=== PATIENT | male | born 1955 | race Caucasian/White ===

== ENCOUNTER 2017-02-23 15:56 | Emergency (ER) | payer OTHER ==
--- NOTE | 2017-02-23 17:16 | DIAGNOSTIC IMAGING REPORT ---
PROCEDURE: CT ABD/PELVIS WITH CONTRAST INDICATION: Nausea, vomiting. Diarrhea. Elevated white blood count (19,500). History of inguinal hernia repairs and back surgeries TECHNIQUE: 125 ml of Isovue 300 were injected intravenously and axial images were obtained of the entire abdomen and pelvis with sagittal and coronal reformations. COMPARISON: None. FINDINGS: ABDOMEN: Gallbladder, liver, spleen, pancreas, kidneys, are normal. Moderate calcified atheromatous changes aorta and iliac vessels, but no evidence of aneurysm There is mild mucosal thickening of the duodenum and proximal jejunum. Bowel pattern is otherwise normal, including appendix. Mild degenerative changes of the lumbar spine. Mild parenchymal scarring at the lung bases. PELVIS: There is marked enlargement prostate (8.2 x 6.8 x 6.6 cm) with central dystrophic calcifications. Pelvic structures are otherwise normal. No evidence of free fluid. IMPRESSION: 1. Mild mucosal thickening of the duodenum and proximal jejunum may be a reflection of gastroenteritis. 2. Moderate calcified atheromatous changes of the abdominal aorta. 3. Otherwise negative CT abdomen. 4. Marked enlargement prostate (8.2 x 6.8 x 6.6 cm). 5. Otherwise negative CT pelvis. 6. Findings discussed with Dr. Corrina Reyes. All CT scans at this facility use dose modulation, iterative reconstruction, and/or weight-based dosing when appropriate to reduce radiation dose to as low as reasonably achievable.
--- NOTE | 2017-02-23 18:14 | ED NURSING NOTES ---
Clinical Report - Nurses [facility] [place] [address] 02/23/2017 15:56 Patient: KATIE YEE TRIAGE Triage time 16:01. Acuity: LEVEL 3. Chief Complaint: NAUSEA and VOMITING. Alert. No acute distress. LAUREI COMA SCORE: Laurie Coma Scale: 15- eyes open spontaneously (4); best verbal response- oriented x 4 (5); best motor response- obeys commands (6). --16:09 Sheriff Vera R.N. 16:01 02/23/17. BP: 132/105. HR: 115. RR: 20. O2 saturation: 100%. --16:09 Sheriff Vera R.N. 16:12 02/23/17. Temp: 97.7 F (oral). Pain level now: 10/10. --16:13 Gracie Read R.N. Weight: 74.8 kg stated. Height/Length: 72 inches Per Patient. BMI: 22.4. --16:03 Sheriff Vera R.N. Medications Vitamins/Minerals Oral. --16:02 Sheriff Vera R.N. Medication/allergy information source: the patient. --16:09 Sheriff Vera R.N. Allergies No Known Drug Allergy. --16:02 Sheriff Vera R.N. History Arrived by private vehicle. Historian: patient. Accompanied by family. Primary physician (none). Onset. (Thursday). SOCIAL HX: Heavy tobacco smoker- less than 1 pack per day. Occasional alcohol use. History of drug use: marijuana. FALL RISK ASSESSMENT: Fall risk assessment completed. No fall risk identified. FUNCTIONAL ASSESSMENT: Functional assessment: no impairments noted. LEARNING NEEDS ASSESSMENT: The learning needs assessment revealed no barriers. --16:09 Sheriff Vera R.N. PROBLEMS: no known problems. ADDITIONAL SURGERIES: Back Surgery. Hernia Repair. --16:03 Sheriff Vera R.N. Assessment GENERAL / NEURO / PSYCH: The patient is awake and alert, appears uncomfortable, is oriented and appears uncomfortable. He has good eye contact. RESPIRATORY: Respirations not labored. CVS: Cardiac rhythm: sinus tachycardia. SKIN: Skin is warm and dry. --16:09 Sheriff Vera R.N. Interventions ID band on patient. To treatment room. --16:09 Sheriff Vera R.N. PHYSICAL ASSESSMENT 16:02/23/17. To room via wheelchair. Patient gowned. GENERAL / NEURO / PSYCH: The patient is awake and alert, appears uncomfortable and is oriented and cooperative. He appears uncomfortable and has good eye contact. RESPIRATORY: Respirations not labored. CVS: Cardiac rhythm: sinus tachycardia. GI / : The patient has had nausea. SKIN: Skin is warm and dry. --16:07 Sheriff Vera R.N. NURSING PROGRESS NOTES 16:03 02/23/2017 Site #1 started via IV in the left forearm with an 18g angiocath, with aseptic technique and good blood return. Blood drawn: rainbow set. Labeled in the presence of the patient and sent to the lab. Saline lock flushed with 10 mL saline. --16:08 Sheriff Vera R.N. 16:02/23/2017 Site #2 started via IV in the left antecubital space with an 18g angiocath, with aseptic technique and good blood return; one attempt. Saline lock flushed with 10 mL saline (by Silas GARCIA). --16:10 Gracie Read R.N. 16:10 02/23/17. fruit picker machine operator, pulse oximeter and NIBP monitor placed on patient. Patient gowned. Head of bed elevated. Reassurance given. Call light placed in reach. Side rails up x 2. Bed placed in lowest position. Brakes of bed on. --16:10 Gracie Read R.N. EKG time: (1615). EKG was performed by a tech and shown to the ED physician. --16:15 Gracie Read R.N. 16:19 02/23/17. Blood samples drawn by nurse. (pulled from [facility] handed to Manager Of Exhibitions And Collections). --16:19 Gracie Read R.N. 16:19 02/23/17. BP: 119/79. HR: 90. RR: 30. O2 saturation: 100%. --16:20 Gracie Read R.N. 16:20 02/23/17. Reassessment after fluids administered. He is calm and resting quietly. Overall patient status is the same- he states feels the same. SKIN: Skin is warm and dry. --16:20 Gracie Read R.N. EKG time: (1615). EKG was ordered, performed by a tech and shown to the ED physician. --16:31 Guillermo Pearce, ADRIANNE Tech1 <<STRICKEN ENTRY-- 16:45 02/23/2017 Started bag #1 1000 mL IV Fluids IV NS (Saline); at 1000 mL/hr over 1 hour(s) via site #1 --16:59 Gracie Read R.N. --END STRIKE>> Change to Details. --17:05 Gracie Read R.N. 16:45 02/23/2017 Started bag #2 1000 IV Fluids IV NS (Saline); at 1000 mL/hr over 1 hour(s) via site #1 --17:05 Gracie Read R.N. 16:45 02/23/2017 IV Saline Lock Drip IV Discontinued: bag #1 infused. Total amount infused: 1000 mL. --16:58 Gracie Read R.N. 16:54 02/23/17. Patient transported to CT by stretcher. --16:54 Gracie Read R.N. 17:17 02/23/2017 Zofran (Ondansetron HCl) IVP 8 mg given over 4 minute(s) via site #1. Allergies verified and confirmed 5 rights. IV patency established. IV site checked: no pain, redness, or swelling. IV flushed thoroughly pre- and post-medication administration. IVP given by RN. --17:17 Gracie Read R.N. 17:15. Patient returned from CT by stretcher. --19:04 Gracie Read R.N. 17:45. The patient is resting quietly. Overall patient status is improved- he states feels better (no vomiting or diarrhea). SKIN: Skin is warm and dry. --19:05 Gracie Read R.N. 18:55. Reassessment after fluids administered and medication administered. He is calm and resting quietly. Overall patient status is improved- he states feels better (pt had no vomiting or diarrhea while in ED, felt much better on DC). SKIN: Skin is warm and dry. --19:07 Gracie Read R.N. 18:55 02/23/2017 IV Fluids IV NS Discontinued: bag #2 infused upon discharge. Total amount infused: 1000 mL. --19:07 Gracie Read R.N. DISPOSITION / DISCHARGE 18:55 02/23/2017 Site #1 removed upon discharge. Catheter intact. Bandaid applied. --19:03 Gracie Read R.N. 18:55 02/23/2017 Site #2 removed upon discharge. Catheter intact. Bandaid applied. --19:03 Gracie Read R.N. Departure time: 1855. Condition at departure: improved and stable. No learning barriers present. Discharge instructions provided and reviewed with the patient and spouse. Reviewed medication(s). Prescription(s) given to the patient. Patient and spouse verbalized understanding. Written instructions provided in [place]. The patient was discharged home and accompanied by spouse. He left the Emergency Department ambulatory and via private vehicle. FALL RISK ASSESSMENT: Fall risk assessment completed. No fall risk identified. --19:04 Gracie Read R.N. 18:55 02/23/17. BP: 134/79. HR: 79. RR: 16. O2 saturation: 100%. Pain level now: 11/07. --19:04 Gracie Read R.N. Locked/Released at 02/23/2017 19:08 by Gracie Read R.N.
--- NOTE | 2017-02-23 18:14 | ED ORDER SUMMARY ---
..... Patient: KATIE YEE OrderSheet Formerly [facility] VisitID: [id number] [place] [address] 61y, M Registration Date/Time: 02/23/2017 ORDER SHEET Weight: 74.8 kg (stated) Allergies: No Known Drug Allergy GENERAL ORDERS: CT Head wo Cont Urgent (16:01 02/23/2017 Francesca BERMEO) (Ack 16:04 PWeiler ER Tech1) (Cancelled: Other16:12 Francesca BERMEO) Tissue Inserter (Continuous) (16:01 02/23/2017 Francesca BERMEO) (16:11 Barbra R.N.) Cardiac Panel Stat (16:02/23/2017 Francesca BERMEO) (Ack 16:04 PWeiler ER Tech1) (16:11 Barbra R.N.) BNP Urgent (16:02/23/2017 Francesca BERMEO) (Ack 16:04 PWeiler ER Tech1) (16:11 Barbra R.N.) Pulse oximeter (16:01 02/23/2017 Francesca BERMEO) (16:11 Barbra R.N.) EKG - ER Stat (16:01 02/23/2017 Francesca BERMEO) (Ack 16:04 PWeiler ER Tech1) (16:20 Barbra R.N.) CT Abd/Pel w Cont (No) (N/A) Urgent (16:45 02/23/2017 Francesca BERMEO) (Ack 16:48 PWeiler ER Tech1) (17:07 LNations ER Tech1) UA-Culture if indicated Urgent (16:46 02/23/2017 Francesca BERMEO) (Ack 16:48 PWeiler ER Tech1) (17:45 PWeiler ER Tech1) MEDICATION ORDERS: IV FLUIDS: IV Saline Lock (16:01 02/23/2017 Francesca BERMEO) (16:08 Janice R.N.) Zofran IV 8 mg (NOW) (16:46 02/23/2017 Francesca BERMEO) (Ack 16:55 Barbra R.N.) (17:17 Barbra R.N.) IV NS : initial bolus 1000 mL (1000 mL/hr), then 1000 mL/hr (NOW) (16:46 02/23/2017 Francesca BERMEO) (16:59 Barbra Canales) ORDER SHEET NOTES: [Electronically signed by Gracie Read R.N. (:08 02/23/2017)] [Electronically signed by Corrina Reyes MD (14:40 03/04/2017)] [Electronically locked/signed by Gracie Read R.N. (:02/23/2017)]
--- NOTE | 2017-02-23 18:14 | ED NURSING NOTES ---
Clinical Report - Nurses [facility] [place] [address] 02/23/2017 15:56 Patient: KATIE YEE TRIAGE Triage time 16:01. Acuity: LEVEL 3. Chief Complaint: NAUSEA and VOMITING. Alert. No acute distress. LAURIE COMA SCORE: Laurie Coma Scale: 15- eyes open spontaneously (4); best verbal response- oriented x 4 (5); best motor response- obeys commands (6). --16:09 Sheriff Vera R.N. 16:01 02/23/17. BP: 132/105. HR: 115. RR: 20. O2 saturation: 100%. --16:09 Sheriff Vera R.N. 16:12 02/23/17. Temp: 97.7 F (oral). Pain level now: 10/10. --16:13 Gracie Read R.N. Weight: 74.8 kg stated. Height/Length: 72 inches Per Patient. BMI: 22.4. --16:03 Sheriff Vera R.N. Medications Vitamins/Minerals Oral. --16:02 Sheriff Vera R.N. Medication/allergy information source: the patient. --16:09 Sheriff Vera R.N. Allergies No Known Drug Allergy. --16:02 Sheriff Vera R.N. History Arrived by private vehicle. Historian: patient. Accompanied by family. Primary physician (none). Onset. (Thursday). SOCIAL HX: Heavy tobacco smoker- less than 1 pack per day. Occasional alcohol use. History of drug use: marijuana. FALL RISK ASSESSMENT: Fall risk assessment completed. No fall risk identified. FUNCTIONAL ASSESSMENT: Functional assessment: no impairments noted. LEARNING NEEDS ASSESSMENT: The learning needs assessment revealed no barriers. --16:09 Sheriff Vera R.N. PROBLEMS: no known problems. ADDITIONAL SURGERIES: Back Surgery. Hernia Repair. --16:03 Sheriff Vera R.N. Assessment GENERAL / NEURO / PSYCH: The patient is awake and alert, appears uncomfortable, is oriented and appears uncomfortable. He has good eye contact. RESPIRATORY: Respirations not labored. CVS: Cardiac rhythm: sinus tachycardia. SKIN: Skin is warm and dry. --16:09 Sheriff Vera R.N. Interventions ID band on patient. To treatment room. --16:09 Sheriff Vera R.N. PHYSICAL ASSESSMENT 16:02/23/17. To room via wheelchair. Patient gowned. GENERAL / NEURO / PSYCH: The patient is awake and alert, appears uncomfortable and is oriented and cooperative. He appears uncomfortable and has good eye contact. RESPIRATORY: Respirations not labored. CVS: Cardiac rhythm: sinus tachycardia. GI / : The patient has had nausea. SKIN: Skin is warm and dry. --16:07 Sheriff Vera R.N. NURSING PROGRESS NOTES 16:03 02/23/2017 Site #1 started via IV in the left forearm with an 18g angiocath, with aseptic technique and good blood return. Blood drawn: rainbow set. Labeled in the presence of the patient and sent to the lab. Saline lock flushed with 10 mL saline. --16:08 Sheriff Vera R.N. 16:02/23/2017 Site #2 started via IV in the left antecubital space with an 18g angiocath, with aseptic technique and good blood return; one attempt. Saline lock flushed with 10 mL saline (by Silas GARCIA). --16:10 Gracie Read R.N. 16:10 02/23/17. compliance monitor, pulse oximeter and NIBP monitor placed on patient. Patient gowned. Head of bed elevated. Reassurance given. Call light placed in reach. Side rails up x 2. Bed placed in lowest position. Brakes of bed on. --16:10 Gracie Read R.N. EKG time: (1615). EKG was performed by a tech and shown to the ED physician. --16:15 Gracie Read R.N. 16:19 02/23/17. Blood samples drawn by nurse. (pulled from [facility] handed to Dairy Processing Supervisor). --16:19 Gracie Read R.N. 16:19 02/23/17. BP: 119/79. HR: 90. RR: 30. O2 saturation: 100%. --16:20 Gracie Read R.N. 16:20 02/23/17. Reassessment after fluids administered. He is calm and resting quietly. Overall patient status is the same- he states feels the same. SKIN: Skin is warm and dry. --16:20 Gracie Read R.N. EKG time: (1615). EKG was ordered, performed by a tech and shown to the ED physician. --16:31 Guillermo Pearce, ADRIANNE Tech1 <<STRICKEN ENTRY-- 16:45 02/23/2017 Started bag #1 1000 mL IV Fluids IV NS (Saline); at 1000 mL/hr over 1 hour(s) via site #1 --16:59 Gracie Read R.N. --END STRIKE>> Change to Details. --17:05 Gracie Read R.N. 16:45 02/23/2017 Started bag #2 1000 IV Fluids IV NS (Saline); at 1000 mL/hr over 1 hour(s) via site #1 --17:05 Gracie Read R.N. 16:45 02/23/2017 IV Saline Lock Drip IV Discontinued: bag #1 infused. Total amount infused: 1000 mL. --16:58 Gracie Read R.N. 16:54 02/23/17. Patient transported to CT by stretcher. --16:54 Gracie Read R.N. 17:17 02/23/2017 Zofran (Ondansetron HCl) IVP 8 mg given over 4 minute(s) via site #1. Allergies verified and confirmed 5 rights. IV patency established. IV site checked: no pain, redness, or swelling. IV flushed thoroughly pre- and post-medication administration. IVP given by RN. --17:17 Gracie Read R.N. 17:15. Patient returned from CT by stretcher. --19:04 Gracie Read R.N. 17:45. The patient is resting quietly. Overall patient status is improved- he states feels better (no vomiting or diarrhea). SKIN: Skin is warm and dry. --19:05 Gracie Read R.N. 18:55. Reassessment after fluids administered and medication administered. He is calm and resting quietly. Overall patient status is improved- he states feels better (pt had no vomiting or diarrhea while in ED, felt much better on DC). SKIN: Skin is warm and dry. --19:07 Gracie Read R.N. 18:55 02/23/2017 IV Fluids IV NS Discontinued: bag #2 infused upon discharge. Total amount infused: 1000 mL. --19:07 Gracie Read R.N. DISPOSITION / DISCHARGE 18:55 02/23/2017 Site #1 removed upon discharge. Catheter intact. Bandaid applied. --19:03 Gracie Read R.N. 18:55 02/23/2017 Site #2 removed upon discharge. Catheter intact. Bandaid applied. --19:03 Gracie Read R.N. Departure time: 1855. Condition at departure: improved and stable. No learning barriers present. Discharge instructions provided and reviewed with the patient and spouse. Reviewed medication(s). Prescription(s) given to the patient. Patient and spouse verbalized understanding. Written instructions provided in [place]. The patient was discharged home and accompanied by spouse. He left the Emergency Department ambulatory and via private vehicle. FALL RISK ASSESSMENT: Fall risk assessment completed. No fall risk identified. --19:04 Gracie Read R.N. 18:55 02/23/17. BP: 134/79. HR: 79. RR: 16. O2 saturation: 100%. Pain level now: 11/07. --19:04 Gracie Read R.N. Locked/Released at 02/23/2017 19:08 by Gracie Read R.N.
--- NOTE | 2017-02-23 18:14 | ED CLINICAL REPORT ---
Clinical Report - Physicians/Mid Levels [facility] [address] [place] [address] 02/23/2017 15:56 Patient: KATIE YEE Time Seen: 1600. Arrived- By private vehicle. Historian- patient. HISTORY OF PRESENT ILLNESS Chief Complaint: VOMITING. This started about 3 days ago and is still present. No recent travel. He has had nausea, vomiting, diarrhea and moderate, crampy abdominal pain. No black stools, bloody stools, constipation, flank pain or history of possible bad food exposure. No known contact with a sick individual. Has not recently been camping or on antibiotics. The illness is described as moderate. Similar symptoms previously: Occasionally. Recent medical care: Not recently seen/assessed. REVIEW OF SYSTEMS No fever, muscle aches, difficulty with urination, dark urine or headache. No dizziness, sore throat, cough, chest pain or difficulty breathing. No excessive urination, skin rash, jaundice, back pain or fainting episodes. No blurred vision. All systems otherwise negative, except as recorded above. PAST HISTORY Problems: no known problems. Additional Surgeries: Back Surgery. Hernia Repair. Medications: Vitamins/Minerals Oral. Allergies: No Known Drug Allergy. SOCIAL HISTORY Smoker- current status unknown. Alcohol use. History of drug use: marijuana. ADDITIONAL NOTES The nursing notes have been reviewed. PHYSICAL EXAM Vital Signs: 02/23/2017 16:01 BP: 132/105. HR: 115. RR: 20. O2 saturation: 100%. Have been reviewed. Appearance: Alert. Oriented X3. No acute distress. Eyes: Pupils equal, round and reactive to light. Eyes normal inspection. ENT: Nose normal. Neck: Normal inspection. CVS: Normal heart rate and rhythm. Heart sounds normal. Pulses normal. Respiratory: No respiratory distress. Breath sounds normal. Abdomen: Soft. Mild tenderness diffusely. No guarding or rebound tenderness. Back: Normal inspection. No CVA tenderness. Skin: Skin warm and dry. Normal skin color. No rash. Normal skin turgor. Extremities: Extremities exhibit normal ROM. No lower extremity edema. Neuro: Oriented X 3. No motor deficit. No sensory deficit. LABS, X-RAYS, AND EKG Abdominal CT: ABDOMEN: Gallbladder, liver, spleen, pancreas, kidneys, are normal. Moderate calcified atheromatous changes aorta and iliac vessels, but no evidence of aneurysm. There is mild mucosal thickening of the duodenum and proximal jejunum. Bowel pattern is otherwise normal, including appendix. Mild degenerative changes of the lumbar spine. Mild parenchymal scarring at the lung bases. PELVIS: There is marked enlargement prostate (8.2 x 6.8 x 6.6 cm) with central dystrophic calcifications. Pelvic structures are otherwise normal. No evidence of free fluid. IMPRESSION: 1. Mild mucosal thickening of the duodenum and proximal jejunum may be a reflection of gastroenteritis. 2. Moderate calcified atheromatous changes of the abdominal aorta. 3. Otherwise negative CT abdomen. 4. Marked enlargement prostate (8.2 x 6.8 x 6.6 cm). 5. Otherwise negative CT pelvis. Study type: abdomen and pelvis. Abdominal CT performed with IV contrast. The study was independently viewed by me, interpreted by the radiologist and contemporaneously by me and discussed with the radiologist. Prior studies were not available for comparison. Laboratory Tests: UA-Culture if indicated: (ECHO: 02/23/2017 17:39) ( MsgRcvd 02/23/2017 17:59) Final results Test Result Flag Units (Reference) URINE COLOR YELLOW URINE APPEARANCE CLEAR URINE GLUCOSE NEGATIVE (NEGATIVE) URINE BILIRUBIN NEGATIVE (NEGATIVE) URINE KETONE 1+ (NEGATIVE) URINE SPECIFIC GRAVITY <= 1.005 L (1.010-1.030) URINE PH 7.0 (5.0-8.0) URINE PROTEIN NEGATIVE (NEGATIVE) URINE UROBILINOGEN 1.0 EU/dL (0.2-1.0) URINE NITRITE POSITIVE (NEGATIVE) URINE BLOOD TRACE-INTACT (NEGATIVE) URINE LEUK ESTERASE POSITIVE (NEGATIVE) URINE RBC 0-1 rbc/hpf (0-1) URINE WBC 3-5 wbc/hpf (0-1) URINE EPITHELIAL CELLS 0-1 EPI/hpf (0-5) URINE BACTERIA FEW (1+) (NONE SEEN) URINE COMMENT CULTURE INDICATED URINE CULTURES ARE SET-UP BASED ON THE FOLLOWING CRITERIA:POSITIVE NITRITEPOSITIVE LEUKOCYTE ESTERASEGREATER THAN 10 WHITE BLOOD CELLSMODERATE (2+) OR GREATER BACTERIA CBC w Diff: (ECHO: 02/23/2017 16:03) ( [facility] 02/23/2017 17:08) Final results Test Result Flag Units (Reference) WHITE BLOOD COUNT 19.5 H K/uL (4.5-11.5) RED BLOOD COUNT 5.47 M/uL (4.50-5.90) HEMOGLOBIN 17.6 H gm/dL (13.5-17.5) HEMATOCRIT 52.9 % (41.0-53.0) MEAN CELL VOLUME 97 fL (80-100) MEAN CORPUSCULAR HGB 32 pg (26-34) MEAN CORPUSCULAR HGB CONC 33 g/dL (31-37) RED CELL DISTRIBUTION WIDTH 13.5 % (11.6-14.8) PLATELET COUNT 247 K/uL (150-400) POLY % 72 % (50-75) BAND % 8 % (0-8) LYMPH 13 L % (25-40) MONO 6 % (3-14) EOSINOPHIL % 1 % (0-4) BASOPHIL % 0 % (0-2) METAMYELOCYTE % 0 % (0-1) MYELOCYTE 0 % (0-1) OTHER CELL TYPE 0 RBC MORPHOLOGY NORMOCHROMIC~~NORMOCYTIC BNP: (ECHO: 02/23/2017 16:03) ( [facility] 02/23/2017 16:47) Final results Test Result Flag Units (Reference) B-TYPE NATRIURETIC PEPTIDE < 5.0 L pg/ml (5-100) CHEM 13 PANEL: (ECHO: 02/23/2017 16:03) ( [facility] 02/23/2017 16:39) Final results Test Result Flag Units (Reference) GLUCOSE 103 mg/dL (70-110) BUN 20 H mg/dL (7-18) CREATININE 1.0 mg/dL (0.6-1.3) Estimated GFR >60 mL/min Estimated GFR- >60 mL/min Note: Persistent reduction over 3 months in eGFR<60 mL/min/1.73 m2 defines CKD. Patients with eGFR values>=60 mL/min/1.73 m2 may also have CKD if evidence ofpersistent proteinuria. Additional information may be foundat www.kidney.org. SODIUM 139 mmol/L (136-145) POTASSIUM 3.6 mmol/L (3.5-5.1) CHLORIDE 104 mmol/L (98-107) CARBON DIOXIDE 23 mmol/L (21-32) CALCIUM 8.0 L mg/dL (8.5-10.1) TOTAL PROTEIN 6.9 g/dL (6.4-8.2) ALBUMIN 3.2 L g/dL (3.3-5.0) BILIRUBIN, TOTAL 0.8 mg/dL (0.0-1.0) ALKALINE PHOSPHATASE 72 U/L (46-116) AST (SGOT) 16 U/L (15-37) ALT (SGPT) 28 U/L (12-78) CPK 30 U/L (24-260) MAGNESIUM 2.1 mg/dL (1.8-2.4) TROPONIN I <0.05 L ng/mL (0.00-1.5) TROPONIN REFERENCE RANGE:<0.1 NEGATIVE0.1-1.5 INDETERMINANT>1.5 POSITIVE . Pulse Oximetry: 02/23/2017 16:01 O2 saturation: 100%. (FIO2 - room air). Interpretation: normal. PROGRESS AND PROCEDURES Course of Care: PT was treated symptomatically with IV fluids and Zofran, and worked up for his abdominal discomfort and nausea. Pt was worked up with labs and CT scan, with leukocytosis noted. He was not able to give a urine sample until late in his stay, and result was inadvertently overlooked. Pt was called at home to be advised of his UTI, and was placed on antibiotics for this. Patient and family counseled in person regarding the patient's stable condition, test results, diagnosis and need for follow-up. Old medical records reviewed. Disposition: Discharged. Condition: stable and improved. CLINICAL IMPRESSION Acute viral gastroenteritis. Acute urinary tract infection with cystitis. INSTRUCTIONS Drink plenty of fluids. (Your tests show no evidence of an emergency condition causing your symptoms.). Warnings: GENERAL WARNINGS: Return or contact your physician immediately if your condition worsens or changes unexpectedly, if not improving as expected, or if other problems arise. Your Current Medications: CONTINUE TAKING THE FOLLOWING MEDICATIONS: Vitamins/Minerals Oral. Prescription Medications: Zofran (orally disintegrating tablets) 4 mg: take 1-2 orally every 6 hours as needed for nausea. Dispense fifteen (15). No refill. Substitution is permissible. Follow-up: Follow up with your doctor in three days if not better. Understanding of the discharge instructions verbalized by patient. (Electronically signed by Corrina Reyes MD 03/04/2017 14:40) Addenda for KATIE YEE VisitID: [id number] Date: 02/23/2017 02/24/2017 16:41 Spoke with patients , called in RX to [facility] per request. Aware pt has UTI and needs to start RX. Called into [facility] [phone] for Cipro 500mg one PO every 12 hours #14, no refills by PARVEZ Carbone. (Electronically signed by Grzegorz Gallardo R.N. - 02/24/2017 16:41)
--- NOTE | 2017-02-23 18:14 | ED ORDER SUMMARY ---
..... Patient: KATIE YEE OrderSheet Formerly [facility] VisitID: [id number] [place] [address] 61y, M Registration Date/Time: 02/23/2017 ORDER SHEET Weight: 74.8 kg (stated) Allergies: No Known Drug Allergy GENERAL ORDERS: CT Head wo Cont Urgent (16:01 02/23/2017 Francesca BERMEO) (Ack 16:04 PWeiler ER Tech1) (Cancelled: Other16:12 Francesca BERMEO) [employer] (Continuous) (16:01 02/23/2017 Francesca BERMEO) (16:11 Barbra R.N.) Cardiac Panel Stat (16:02/23/2017 Francesca BERMEO) (Ack 16:04 PWeiler ER Tech1) (16:11 Barbra R.N.) BNP Urgent (16:02/23/2017 Francesca BERMEO) (Ack 16:04 PWeiler ER Tech1) (16:11 Barbra R.N.) Pulse oximeter (16:01 02/23/2017 Francesca BERMEO) (16:11 Barbra R.N.) EKG - ER Stat (16:01 02/23/2017 Francesca BERMEO) (Ack 16:04 PWeiler ER Tech1) (16:20 Barbra R.N.) CT Abd/Pel w Cont (No) (N/A) Urgent (16:45 02/23/2017 Francesca BERMEO) (Ack 16:48 PWeiler ER Tech1) (17:07 LNations ER Tech1) UA-Culture if indicated Urgent (16:46 02/23/2017 Francesca BERMEO) (Ack 16:48 PWeiler ER Tech1) (17:45 PWeiler ER Tech1) MEDICATION ORDERS: IV FLUIDS: IV Saline Lock (16:01 02/23/2017 Francesca BERMEO) (16:08 Janice R.N.) Zofran IV 8 mg (NOW) (16:46 02/23/2017 Francesca BERMEO) (Ack 16:55 Barbra R.N.) (17:17 Barbra R.N.) IV NS : initial bolus 1000 mL (1000 mL/hr), then 1000 mL/hr (NOW) (16:46 02/23/2017 Francesca BERMEO) (16:59 Barbra Canales) ORDER SHEET NOTES: [Electronically signed by Gracie Read R.N. (:08 02/23/2017)] [Electronically signed by Corrina Reyes MD (14:40 03/04/2017)] [Electronically locked/signed by Gracie Read R.N. (:02/23/2017)]
--- NOTE | 2017-03-04 14:40 | ED MED RECONCILIATION SUMMARY ---
Patient: KATIE YEE Medication Reconciliation Report [facility] VisitID: [id number] [address] [place] [address] 61y, M Registration Date/Time: 02/23/2017 Weight: 74.8 kg Height/Length: 72 in. BMI: 22.4 ALLERGIES: No Known Drug Allergy The patient's Home Medications are listed below: CONTINUE TAKING THE FOLLOWING MEDICATIONS: Vitamins/Minerals Oral The source(s) of the original Home Medication information: patient The following Medications were given to the patient in the Emergency Department: IV NS IV Fluids bolus 0, then 1000 mL/hr, administered: 02/23/2017 4:45:00 PM Zofran [IVP] IVP 8 mg, administered: 02/23/2017 5:17:00 PM The following Medications were prescribed to the patient: Zofran (orally disintegrating tablets) 4 mg: take 1-2 orally every 6 hours as needed for nausea. Dispense fifteen (15). No refill. Substitution is permissible. -- Corrina Reyes MD
--- NOTE | 2017-03-04 14:40 | ED DISCHARGE INSTRUCTIONS ---
Patient: KATIE YEE General Instructions [facility] VisitID: [id number] [place] [address] 61y, M Registration Date/Time: 02/23/2017 Acute viral gastroenteritis. Acute urinary tract infection with cystitis. INSTRUCTIONS Drink plenty of fluids. (Your tests show no evidence of an emergency condition causing your symptoms.). Warnings: GENERAL WARNINGS: Return or contact your physician immediately if your condition worsens or changes unexpectedly, if not improving as expected, or if other problems arise. Your Current Medications: CONTINUE TAKING THE FOLLOWING MEDICATIONS: Vitamins/Minerals Oral. Prescription Medications: Zofran (orally disintegrating tablets) 4 mg: take 1-2 orally every 6 hours as needed for nausea. Dispense fifteen (15). No refill. Substitution is permissible. Follow-up: Follow up with your doctor in three days if not better. Understanding of the discharge instructions verbalized by patient. ADDITIONAL INFORMATION Viral Gastroenteritis (6Yr-Adult) Gastroenteritis is another name for thestomach flu.It is most often caused by a virus that affects the stomach and intestinal tract. Symptoms include stomach cramping and fever, vomiting and/or diarrhea, and can last from 2 to 7 days. The danger from repeated vomiting or diarrhea is dehydration. This is the loss of too much water and minerals from the body. When this occurs, body fluids must be replaced. Antibiotics are not effective for this illness, but simple home treatment will be helpful. Home Care If symptoms are severe, rest at home for the next 24 hours. Avoid tobacco, caffeine, and alcohol use, which can worsen symptoms. Acetaminophen (Tylenol) or ibuprofen (Motrin, Advil) may be usedfor fever or pain unless another medication was prescribed. NOTE: If you have chronic liver or kidney disease or ever had a stomach ulcer or GI bleeding, talk with your doctor before using these medicines. Aspirin should never be used in anyone under 18 years of age who is ill with a fever. It may cause severe liver damage. If medicines for diarrhea or vomiting were prescribed, be sure they are takenonly as directed. If vomiting, drink small amounts of clear fluids (such as water, sports drinks, clear sodas) at frequent intervals to prevent dehydration. Start with 1 to 2 tablespoons every 10 minutes. Once vomiting stops, follow these guidelines: During The First 12 To 24 Hours follow the diet below: Beverages: Sport drinks like Gatorade, soft drinks without caffeine; rashad roger, mineral water (plain or flavored), decaffeinated tea and coffee. Soups: Clear broth, consomm and bouillon Desserts: Plain gelatin (Jell-O), Popsicles and fruit juice bars. During The Next 24 Hours you may add the following to the above: Hot cereal, plain toast, bread, rolls, crackers Plain noodles, rice, mashed potatoes, chicken noodle or rice soup Unsweetened canned fruit (avoid pineapple), bananas Limit fat intake to less than 15 grams per day by avoiding margarine, butter, oils, mayonnaise, sauces, gravies, fried foods, peanut butter, meat, poultry, and fish. Limit fiber; avoid raw or cooked vegetables, fresh fruits (except bananas), and bran cereals. Limit caffeine and chocolate. Do not use spices or seasonings except salt. During The Next 24 Hours The patient can gradually resume a normal diet as symptoms lessen. Preventing Spread Hand washing with soap and water is the best way to prevent the spread of viruses. Caregivers should wash their hands before andafter touching the sick person. The sick person, as well as everyone in the family,should wash their hands after using the toilet and before meals. Clean the toilet after each use. People with diarrhea should not prepare food for others. If you are preparing your own foods, wash your hands before and after. Follow Up with your doctor as advised. Call your doctor if you are not improving over the next 2 to 3 days. If a stool (diarrhea) sample was taken, you may call in 2 days (or as directed) for the results. Get Prompt Medical Attention if any of the following occur: Increasing abdominal pain Continued vomiting (unable to keep liquids down) Frequent diarrhea (more than 5 times a day) Blood in vomit or stool (black or red color) Dark urine, reduced urine output, or extreme thirst Weakness, dizziness, fainting Drowsiness, confusion, stiff neck, or seizure Fever of 100.4F (38C) oral or higher, not better with fever medication New rash You have been given the following additional information: Gastroenteritis, Viral (6Y-Adult) (Electronically signed by Corrina Reyes MD 03/04/2017 14:40)
--- NOTE | 2017-03-04 14:40 | ED MAR SUMMARY ---
..... Medication Administration Record [facility] [address] [place] [address] Patient: KATIE YEE Visit ID: [id number] 61y, M Weight: 74.8 kg Height/Length: 72 in BMI: 22.4 ALLERGIES: No Known Drug Allergy Start 16:45 02/23/2017 Gracie Read R.N., Stop 18:55 02/23/2017 Gracie Read R.N. Medication Administered: IV NS (SALINE), Dose: IV Fluids over 1 hour(s), Rate: 1000 mL/hr, Dispensed: 1000 mL bag, Site: #1 left forearm. Medication Ordered: IV NS : initial bolus 1000 mL (1000 mL/hr), then 1000 mL/hr (NOW). Given 17:17 02/23/2017 Gracie Read R.N. Medication Administered: ZOFRAN [IVP] (ONDANSETRON HCL), Dose: 8 mg IVP over 4 minute(s), Site: #1 left forearm. Medication Ordered: Zofran IV 8 mg (NOW).
--- NOTE | 2017-03-04 14:40 | ED MAR SUMMARY ---
..... Medication Administration Record [facility] [address] [place] [address] Patient: KATIE YEE Visit ID: [id number] 61y, M Weight: 74.8 kg Height/Length: 72 in BMI: 22.4 ALLERGIES: No Known Drug Allergy Start 16:45 02/23/2017 Gracie Read R.N., Stop 18:55 02/23/2017 Gracie Read R.N. Medication Administered: IV NS (SALINE), Dose: IV Fluids over 1 hour(s), Rate: 1000 mL/hr, Dispensed: 1000 mL bag, Site: #1 left forearm. Medication Ordered: IV NS : initial bolus 1000 mL (1000 mL/hr), then 1000 mL/hr (NOW). Given 17:17 02/23/2017 Gracie Read R.N. Medication Administered: ZOFRAN [IVP] (ONDANSETRON HCL), Dose: 8 mg IVP over 4 minute(s), Site: #1 left forearm. Medication Ordered: Zofran IV 8 mg (NOW).
--- NOTE | 2017-03-04 14:40 | ED MED RECONCILIATION SUMMARY ---
Patient: KATIE YEE Medication Reconciliation Report [facility] VisitID: [id number] [address] [place] [address] 61y, M Registration Date/Time: 02/23/2017 Weight: 74.8 kg Height/Length: 72 in. BMI: 22.4 ALLERGIES: No Known Drug Allergy The patient's Home Medications are listed below: CONTINUE TAKING THE FOLLOWING MEDICATIONS: Vitamins/Minerals Oral The source(s) of the original Home Medication information: patient The following Medications were given to the patient in the Emergency Department: IV NS IV Fluids bolus 0, then 1000 mL/hr, administered: 02/23/2017 4:45:00 PM Zofran [IVP] IVP 8 mg, administered: 02/23/2017 5:17:00 PM The following Medications were prescribed to the patient: Zofran (orally disintegrating tablets) 4 mg: take 1-2 orally every 6 hours as needed for nausea. Dispense fifteen (15). No refill. Substitution is permissible. -- Corrina Reyes MD
== END 2017-02-23 18:55 | disposition home or self-care (01) ==
LOC: ED SRH 15:56
DX: A08.4 Viral intestinal infection, unspecified (principal); N30.00 Acute cystitis without hematuria
CPT/HCPCS: 90004; 90100; 90148; 90469; 90616; 91320; 91643; 92610; 92720; 95059